=== PATIENT | female | born 1990 | race Caucasian/White ===

== ENCOUNTER 2018-02-20 19:39 | Emergency (ER) | payer SELFPAY ==
[~2018-02-20] VITALS: Ht 170.2 cm; Wt 70.0 kg
[~2018-02-20 19:39] MED LIST: DOCU-131 PO; IBUP-1222 PO; none per pt
[2018-02-20 19:42] VITALS: BP 122/83
[2018-02-20] MEDS ORDERED: PLEASE ENTER HEIGHT AND WEIGHT MC SCH (20:00)
[2018-02-20] MEDS ORDERED: IBUPROFEN 200 MG TABLET PO ONE (20:00)
[2018-02-20] MEDS ORDERED: HYDROcodone/APAP 5/325 TABLET PO ONE (20:00)
[2018-02-20] MEDS ORDERED: HYDROcodone/APAP 5/325 TABLET ONE (20:17)
[2018-02-20] MEDS ORDERED: IBUPROFEN 200 MG TABLET ONE (20:17)
== END 2018-02-20 20:24 | disposition home or self-care (01) ==
LOC: ED 20:05
DX: K02.9 Dental caries, unspecified (principal); K04.7 Periapical abscess without sinus
CPT/HCPCS: 99283